=== PATIENT | male | born 2005 | race Caucasian/White ===

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

== ENCOUNTER 2024-11-24 12:21 | Emergency (ER) | payer OTHER ==
[~2024-11-24] VITALS: Ht 170.2 cm; Wt 72.6 kg
[2024-11-24 13:05] VITALS: BP 132/76
[2024-11-24] MEDS ORDERED: Voltaren100 GM TOP (13:40)
== END 2024-11-24 13:53 | disposition home or self-care (01) ==
LOC: ER 12:21
DX: S83.92XA Sprain of unspecified site of left knee, initial encounter (principal); X50.1XXA Overexertion from prolonged static or awkward postures, initial encounter
CPT/HCPCS: 73562-LT; 99283-25